=== PATIENT | male | born 1960 | race Caucasian/White ===

== ENCOUNTER 2019-04-16 16:33 | Emergency (ER) | payer MEDICARE ==
[2019-04-16] MEDS ORDERED: Ketorolac Tromethamine 30 MG/ML VIAL ONE (18:13)
--- NOTE | 2019-04-16 18:53 | RAD ---
AP PELVIS: HISTORY: Fall with injury. FINDINGS: The bony pelvis appears intact. The hips appear intact. IMPRESSION: No acute fracture identified. ADDENDUM: CT scan pelvis confirms fractures of the right superior and inferior rami and right ilium, which are not readily apparent on this plain film evaluation. See CT pelvis. POS: AGW
[2019-04-16] MEDS ORDERED: Morphine 4 MG/ML VIAL ONE (20:08)
--- NOTE | 2019-04-16 20:10 | CT ---
CT PELVIS: INDICATIONS: Fall with injury. FINDINGS: There are fractures of the right hemipelvis. There is a mildly comminuted fracture of the right super ior ramus at the ischium and extending into the mid superior ramus. Associated fracture of the right inferior ramus. Fractures of the right ilium, which are mildly comminuted and extend to the SI joint on the right. The sacrum appears intact. The femoral heads and femoral necks appear intact. No significant soft tissue abnormality. IMPRESSION: Multiple fractures right hemipelvis. There are fractures of the superior and inferior rami on the rig ht. Fractures of the right ilium, as described above. POS: AGW
--- NOTE | 2019-04-16 20:48 | CT ---
CT LUMBAR SPINE WITHOUT CONTRAST: HISTORY: Injury after falling from a standing position. The patient reports pain in the inner groin and into t he right buttock. FINDINGS: There are mild compression fractures involving the T12 and L1 vertebral bodies of indeterminate age. There is just less than 50% loss of height involving the anterior aspects of these vertebral bodies. No additional compression fracture is seen. There is a corticated osseous density with irregularity i nvolving the anterior-superior endplate of the L3 vertebral body. This may represent a limbus type ve rtebra. There is grade 1 anterolisthesis of L4 on L5 with the degree of anterolisthesis measuring 7 mm. Multi level degenerative changes are seen in the lumbar spine. T12-L1: There is a disk osteophyte complex with vacuum phenomenon seen in the intervertebral disk. Th ere is flattening of the anterior aspect of the ventral subarachnoid space. Neural foramina are paten t. L1-L2: There is disk osteophyte complex with slight flattening at the anterior aspect of the thecal s ac. The neural foramina are patent. L2-L3: There is a broad-based disk osteophyte complex and facet hypertrophic changes. There is moder ate bilateral neural foraminal narrowing. There is mild central canal narrowing. L3-L4: There is mild disk osteophyte complex and facet degenerative changes. There is no significant central canal or neural foraminal narrowing. L4-L5: There is grade 1 anterolisthesis at this level, as described above, with disk osteophyte compl ex as well as facet hypertrophic change and ligamentous thickening. There is severe narrowing of the central canal at the level of the superior aspect of the L5 vertebral body. There is also moderate to severe bilateral neural foraminal narrowing. L5-S1: There is a mild disk osteophyte complex and facet hypertrophic changes however there is no sig nificant central canal or neural foraminal narrowing. The prevertebral soft tissues have a normal appearance. There are dense vascular calcifications seen throughout. There is an incompletely imaged hypodense lesion in the mid portion right kidney, which is unable to be further characterized. There is colonic diverticulosis. IMPRESSION: 1. Indeterminate age wedge shaped compression fractures of the T12 and L1 vertebral bodies. 2. Multilevel degenerative changes throughout the lumbar spine. 3. Grade 1 anterolisthesis of L4 on L5 related to prominent facet hypertrophic changes. 4. Incompletely imaged hypodense lesion right kidney. POS: OFF
== END 2019-04-17 01:00 ==
LOC: ERS 16:33
DX: S32.501A Unspecified fracture of right pubis, initial encounter for closed fracture (principal); S32.301A Unspecified fracture of right ilium, initial encounter for closed fracture; S22.089A Unspecified fracture of T11-T12 vertebra, initial encounter for closed fracture; S22.019A Unspecified fracture of first thoracic vertebra, initial encounter for closed fracture; E10.9 Type 1 diabetes mellitus without complications; E03.9 Hypothyroidism, unspecified; Z79.899 Other long term (current) drug therapy; W18.30XA Fall on same level, unspecified, initial encounter
CPT/HCPCS: 72131; 72170; 72192; 96372; J1885; J2270

== ENCOUNTER 2019-05-22 15:36 | Outpatient (CLI) | payer MEDICARE ==
--- NOTE | 2019-05-22 15:58 | RAD ---
Lumbar spine 2 views HISTORY: Compression fracture. Follow-up. COMPARISON: 04/16/2019. FINDINGS: There are 5 lumbar type vertebrae. Pedicles are intact. Compression of the L1 superior endp late is worse than on the material carrier topogram from the 04/16/2019 CT exam. Compression of approximately 50%. Mild wedging of the T12 vertebral body appears stable. No evidence of retropulsion. Grade 1 spondylol isthesis at the L4-5 level is stable. Rightward convex rotatory scoliotic curvature is more pronounced than on the prior CT exam. Prominent calcification over the arterial structures. Osteophytosis throughout the vertebral bodies a nd facets. IMPRESSION: Interval worsening of L1 superior endplate compression fracture. Mild compression of T12 appears stable. Prominent degenerative changes. Atherosclerosis.
--- NOTE | 2019-05-22 15:58 | RAD ---
EXAM: XR Thoracic Spine 3 V STANDARD PROVIDED CLINICAL HISTORY: Lumbar compression fractures. COMPARISON: CT lumbar spine on 04/16/2019 FINDINGS: There are wedge-shaped compression fractures of the T12 and L1 vertebral bodies with the degree of he ight loss similar to prior CT exam of the lumbar spine. The remaining vertebral body heights of the thoracic spine appear to be within normal limits; although, the upper thoracic spine is not well seen on the lateral projection. Mild degenerative changes are seen in the spine. Vascular calcifications are seen in the thoracic aorta. IMPRESSION: Mild wedge-shaped compression fractures of the T12 and L1 vertebral bodies with mild exaggerated kyph osis of the thoracolumbar spine at this level. The compression fractures are stable compared to CT exam on 04/16/2019.
== END 2019-05-22 15:37 | disposition home or self-care (01) ==
LOC: TBSIIMAG 15:36
PROVIDERS: ATTEND Neurological Surgery
DX: S32.010A Wedge compression fracture of first lumbar vertebra, initial encounter for closed fracture (principal); S22.080A Wedge compression fracture of T11-T12 vertebra, initial encounter for closed fracture; M40.205 Unspecified kyphosis, thoracolumbar region
CPT/HCPCS: 72072; 72100

== ENCOUNTER 2019-07-05 13:06 | Outpatient (CLI) | payer MEDICARE ==
--- NOTE | 2019-07-05 14:03 | RAD ---
XR Lumbar Spine 2 Or 3 View: 07/05/2019 12:00 AM Follow-up lumbar fracture COMPARISON: Lumbar spinal radiograph dated May 22, 2019 FINDINGS: Fracture: The wedge compression abnormalities at T12 and L1 are unchanged. No acute fracture. Alignment: Stable grade 1 anterolisthesis of L4 on L5 Degenerative Change: Stable moderate to severe multilevel spondylosis of the lumbar spine. Soft tissues: There are scattered vascular calcifications involving the abdominal aorta. Visualized b owel gas pattern is unremarkable.. IMPRESSION: Stable T12-L1 wedge compression abnormalities. Stable spondylosis of the lumbar spine.
--- NOTE | 2019-07-05 14:04 | RAD ---
XR Thoracic Spine 3 V STANDARD: 07/05/2019 12:00 AM Follow-up back fracture COMPARISON: May 22, 2019 FINDINGS: Fracture: Wedge compression abnormalities at T12 and L1 are stable. Alignment: Spinal alignment appears within normal limits. Degenerative Change: Mild multilevel disc degenerative disease is stable. Prevertebral soft tissues: No acute. IMPRESSION: Stable wedge compression abnormalities at T12 and L1.
== END 2019-07-05 13:07 | disposition home or self-care (01) ==
LOC: TBSIIMAG 13:06
PROVIDERS: ATTEND Neurological Surgery
DX: M48.56XA Collapsed vertebra, not elsewhere classified, lumbar region, initial encounter for fracture (principal); M47.812 Spondylosis without myelopathy or radiculopathy, cervical region
CPT/HCPCS: 72072; 72100

== ENCOUNTER 2019-07-23 08:33 | Inpatient (IN) | payer MEDICARE ==
[2019-07-23] MEDS ORDERED: Morphine 4 MG/ML VIAL ONE ×4 (08:53→12:28)
[2019-07-23] MEDS ORDERED: Ondansetron PF 4 MG/2 ML Vial ONE ×2 (08:53→09:57)
--- NOTE | 2019-07-23 09:21 | RAD ---
EXAM: 2 views of the right femur HISTORY: Fall transitioning from bed to wheelchair with right leg pain COMPARISON: None FINDINGS: There is a spiral fracture proximal femoral diaphysis. No soft tissue swelling is seen. Vas cular calcifications are seen. No degenerative changes are seen in the hip. IMPRESSION: Proximal right femur fracture
--- NOTE | 2019-07-23 09:45 | RAD ---
EXAM: Single view of the chest HISTORY: Femur fracture COMPARISON: None FINDINGS: Single view of the chest shows a normal sized cardiomediastinal silhouette. There is no bairon dence of consolidation, mass, or pleural effusion. The bones are unremarkable. IMPRESSION: No evidence of acute cardiopulmonary disease
--- NOTE | 2019-07-23 09:45 | RAD ---
RIGHT KNEE 2 VIEWS: Date: 07/23/2019 INDICATION: History of right knee pain after fall. COMPARISON: None. FINDINGS: No acute fracture or subluxation is evident. There is soft tissue calcifications. There is mild soft tissue swelling involving the anterior right knee. IMPRESSION: No acute osseous abnormality. POS: CET
--- NOTE | 2019-07-23 09:47 | RAD ---
RIGHT HIP 2 VIEWS: Date: 07/23/2019 INDICATION: History of fall with right leg pain and deformity. COMPARISON: None. FINDINGS: There is a comminuted, displaced subtrochanteric femur fracture with associated butterfly fragment. T he distal fracture fragment is displaced posteriorly one fully shaft width. There is apex anterior an gulation at the fracture site. There are healing right obturator ring fractures. There is diffuse ost eopenia. There are scattered vascular calcifications. IMPRESSION: 1. Comminuted, displaced right subtrochanteric femur fracture. 2. Healing right obturator ring fractures. POS: CET
[2019-07-23] MEDS ORDERED: ePHEDrine/0.9% NaCl/PF SYRINGE 50 mg/10 ml ONE (09:57)
[2019-07-23] MEDS ORDERED: Glycopyrrolate 0.2 MG/ML 5 ML SYRINGE ONE (09:57)
[2019-07-23] MEDS ORDERED: Rocuronium Bromide 10 MG/ML (10ML VIAL) ONE (09:57)
[2019-07-23] MEDS ORDERED: Lidocaine 1% PF 5 ML VIAL ONE (09:57)
[2019-07-23] MEDS ORDERED: PROPOFOL 200 MG/20 ML VIAL ONE (09:57)
[2019-07-23] MEDS ORDERED: PHENYLEPHRINE-NS 100 MCG/ML 10 ML SYRINGE ONE (09:57)
[2019-07-23] MEDS ORDERED: Metoprolol Tartrate 5 MG/5 ML VIAL ONE (09:57)
[2019-07-23 10:01] LABS: #Lymphocytes 1.2 thou/uL (1.20-3.40); #Monocytes 0.6 thou/uL (0.11-0.59); #Neutrophils 9.1 thou/uL (1.40-6.50); %Basophils 0.2 % (0.0-1.0); %Eosinophils 0.4 % (0.0-10.0); %Lymphocytes 10.8 % (21.0-51.0); %Monocytes 5.3 % (0.0-10.0); %Neutrophils 83.3 % (42.0-75.0); Hemoglobin 14.9 g/dL (14.0-18.0); Mean Corpuscular HGB CONC 35.4 g/dL (32.0-36.0); Mean Corpuscular Hemoglobin 31.3 pg (27.0-31.0); Mean Corpuscular Volume 88.6 fL (78.0-98.0); Mean Platelet Volume 6.4 fL (7.4-10.4); Platelet Count 187 thou/uL (130-400); RBC Distribution Width 12.5 % (11.5-14.5); Red Blood Cell (RBC) Count 4.75 mill/uL (4.70-6.10)
[2019-07-23 10:11] LABS: Prothrombin Time 13.1 SEC (12.0-14.7)
[2019-07-23 10:26] LABS: ALT (SGPT) 18 U/L (8-55); AST (SGOT) 22 U/L (5-34); Albumin 4.2 g/dL (3.4-4.8); Alkaline Phosphatase 89 U/L (40-110); Anion Gap 15 mmol/L (10-20); BUN (Urea Nitrogen) 26 mg/dL (8.4-25.7); Bilirubin, Total 0.8 mg/dL (0.2-1.2); Calc. Creatinine Clearance 0 mL/min (70-130); Calcium 8.9 mg/dL (7.8-10.44); Carbon Dioxide 23 mmol/L (23-31); Chloride 106 mmol/L (98-107); Estimated GFR-MDRD 55; Globulin 2.8 g/dL (2.4-3.5); Glucose 100 mg/dL (80-115); Potassium 4.9 mmol/L (3.5-5.1); Sodium 139 mmol/L (136-145)
[2019-07-23] MEDS ORDERED: Dextrose 50% Abboject 50 ML SYRINGE SLOW IVP PRN (11:16)
[2019-07-23] MEDS ORDERED: Ondansetron ODT 4 MG TAB PO PRN (11:16)
[2019-07-23] MEDS ORDERED: hydrALAZINE 20 MG/ML VIAL SLOW IVP PRN (11:16)
[2019-07-23] MEDS ORDERED: Dextrose 5% in Water 1,000 ML IV PRN (11:16)
[2019-07-23] MEDS ORDERED: traMADol HCl 50 MG TAB PO PRN ×2 (11:20)
[2019-07-23] MEDS ORDERED: HYDROmorphone 0.5 MG/0.5 ML SYRINGE ONE ×3 (11:55→18:52)
--- NOTE | 2019-07-23 12:47 | PRG ---
DATE OF SERVICE: 07/23/2019 REQUESTING PHYSICIAN: Gama Watkins MD. CONSULTING PHYSICIAN: Dr. Orellana. HISTORY OF PRESENT ILLNESS: Mr. Garvin is a 59-year-old male, coming to the ED for evaluation of right thigh pain. The patient reports he was standing up, trying to go to his wheelchair, tripped and fell backward. He heard a crack at that time, did not loss consciousness or hit his head. After the fall, the patient reports pain of the right thigh and unable to bear weight. Upon arrival in the ED, the patient is alert, awake, pain from the right thigh, with vital signs stable. REVIEW OF SYSTEMS: Noncontributory except per HPI. PAST MEDICAL HISTORY: 1. The patient has diabetes type 1, using Lantus and Lovenox. 2. Hypothyroid. 3. The patient had a spine compression fracture and pelvic fracture in March 2019 and he did go to rehab for those injuries. PAST SURGICAL HISTORY: 1. 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 2. IVC filter. SOCIAL HISTORY: Denies smoking history. Denies alcohol. The patient occasionally uses marijuana for pain. The patient lives at home with family. Ambulates using left lower extremity prosthetic and wheelchair occasionally. PHYSICAL EXAMINATION: GENERAL: The patient is lying down in bed with no acute respiratory distress. The patient is alert and awake. GCS 15. VITAL SIGNS: Temperature is 97.4, respiratory rate 20, heart rate 87, blood pressure 150/100, O2 saturation 98% on room air. HEENT: Atraumatic. No bruising. No tender to palpation. CHEST: No bruising. No tender to palpation. LUNGS: Clear bilaterally. HEART: Regular rate and rhythm. ABDOMEN: Soft. Nondistended. PELVIS: Stable. EXTREMITIES: Left lower extremity amputation. Right lower extremity deformity. Right thigh deformity. Tender to palpation. External rotation. Dry feet. Neurovascularly intact. Upper extremities neurovascularly intact x2. NEUROLOGIC: No focal neurologic deficits. LABORATORY DATA AND IMAGING STUDIES: Initial workup showed sodium 139, potassium 4.9, creatinine 1.32, glucose 100, PT 13.1. Right hip x-rays showed comminuted displaced right subtrochanteric femur fracture and healing right obturator ring fracture. Right knee x-rays showed . White count 11 and hemoglobin 14.9. Chest x-ray showed no acute cardiopulmonary disease. ASSESSMENT: 1. Status post ground level fall. 2. Right femur fracture. 3. History of diabetes type 1, hypertension, hypothyroid, recent C-spine compression fracture and pelvic fracture (healing), left lower extremity amputation. PLAN: The patient will be admitted to telemetry for pain control and supportive care in regard to diabetes and blood pressure and hypertension treatment. Initiate nonpharmacological DVT prophylaxis, gastritis prophylaxis, and pulmonary toilet. Dr. Orellana plans to take the patient to the OR this afternoon for right femur fracture fixation. The patient will be n.p.o. with may be a sip of water. Postop, the patient will need to work with PT/OT, anticipate placement in rehabilitation facility. Job ID: [id number]
[2019-07-23] MEDS: Morphine 4 MG/ML VIAL SLOW IVP PRN ×2 (12:48→21:29)
[2019-07-23] MEDS ORDERED: Fentanyl 100 MCG/2 ML VIAL ONE ×5 (13:29→18:18)
[2019-07-23] MEDS ORDERED: HYDROmorphone 2 MG/ML VIAL SLOW IVP PRN (14:45)
[2019-07-23] MEDS ORDERED: Meperidine HCl/PF 25 MG/ML VIAL SLOW IVP PRN (14:45)
[2019-07-23] MEDS ORDERED: Promethazine HCl 25 MG/ML VIAL SLOW IVP PRN (14:45)
[2019-07-23] MEDS ORDERED: Ondansetron HCl/PF 4 MG/2 ML Vial IVP PRN (14:45)
[2019-07-23 15:14] VITALS: BMI 23.6
[2019-07-23] MEDS: Acetaminophen 500 MG TAB PO SCH ×2 (15:16→19:11)
[2019-07-23] MEDS: Sodium Chloride 0.9% 1,000 ML IV SCH ×2 (15:16→20:21)
[2019-07-23] MEDS: Gabapentin 300 MG CAP PO SCH (16:36)
--- NOTE | 2019-07-23 19:17 | RAD ---
RIGHT FEMUR TWO VIEWS: History: Post op. FINDINGS: There has been placement of a compression screw and long stem intermedullary tristan stabilizing a spiral type fracture of the proximal femoral shaft in satisfactory position. IMPRESSION: Open reduction internal fixation of the proximal femoral shaft fracture. POS: LARRY
[2019-07-23] MEDS: Insulin Regular 300 UNITS/3 ML VIAL SC PRN (21:26)
[2019-07-23] MEDS ORDERED: Promethazine HCl 25 MG/ML VIAL IM PRN (21:38)
[2019-07-24] MEDS: Famotidine 20 MG TAB PO SCH ×2 (00:07→08:20)
[2019-07-24] MEDS: Acetaminophen 500 MG TAB PO SCH ×3 (00:07→11:19)
[2019-07-24] MEDS: Cyclobenzaprine 10 MG TAB PO SCH ×3 (00:08→21:42)
[2019-07-24] MEDS: Gabapentin 300 MG CAP PO SCH ×2 (00:08→08:20)
--- NOTE | 2019-07-24 00:36 | PRG ---
DATE OF SERVICE: SUBJECTIVE: The patient is currently on the surgical floor. He was admitted today status post a ground level fall, in which he sustained a right femur fracture. The patient has undergone open reduction and internal fixation of same. He tolerated the procedure well. Postoperatively, he reports his pain is controlled. He is currently tolerating a diet. He has not worked with Physical and Occupational Therapy. PHYSICAL EXAMINATION: VITAL SIGNS: Stable. The patient is afebrile. GENERAL: The patient is resting comfortably in bed. His Hal Coma Scale is 15. LUNGS: Clear to auscultation with good inspiratory and expiratory effort. HEART: Regular rate and rhythm. ABDOMEN: Soft, flat, nontender with active bowel sounds. EXTREMITIES: Neurovascularly intact x4. Postop dressing is clean, dry, and intact. ASSESSMENT: 1. Status post ground level fall. 2. Status post open reduction and internal fixation of right femur fracture. 3. History of diabetes, hypertension, hypothyroidism, recent C-spine compression fracture and pelvic ring fracture. 4. History of left [id number] amputation. PLAN: Plan will be to continue supportive care, physical and occupational therapy to begin tomorrow. Encourage out of bed diet and begin chemical VTE prophylaxis likely tomorrow. We will also discuss placement at that time. Job ID: [id number]
[2019-07-24] MEDS: Sodium Chloride 0.9% 1,000 ML IV SCH ×4 (05:27→23:18)
[2019-07-24] MEDS: Levothyroxine Sodium 125 MCG TAB PO SCH (05:30)
[2019-07-24] MEDS: Insulin Regular 300 UNITS/3 ML VIAL SC PRN ×2 (05:34→11:20)
[2019-07-24 05:47] LABS: #Lymphocytes 1.4 thou/uL (1.20-3.40); #Monocytes 0.9 thou/uL (0.11-0.59); #Neutrophils 7.4 thou/uL (1.40-6.50); %Basophils 0.1 % (0.0-1.0); %Eosinophils 0.2 % (0.0-10.0); %Lymphocytes 14.5 % (21.0-51.0); %Monocytes 9.4 % (0.0-10.0); %Neutrophils 75.8 % (42.0-75.0); Mean Corpuscular HGB CONC 33.6 g/dL (32.0-36.0); Mean Corpuscular Hemoglobin 30.5 pg (27.0-31.0); Mean Platelet Volume 7.5 fL (7.4-10.4); Platelet Count 136 thou/uL (130-400); RBC Distribution Width 12.7 % (11.5-14.5); Red Blood Cell (RBC) Count 3.59 mill/uL (4.70-6.10); White Blood Cell (WBC) Count 9.8 thou/uL (4.8-10.8)
[2019-07-24 06:01] LABS: Anion Gap 17 mmol/L (10-20); BUN (Urea Nitrogen) 33 mg/dL (8.4-25.7); Calc. Creatinine Clearance 50 mL/min (70-130); Calcium 7.7 mg/dL (7.8-10.44); Carbon Dioxide 15 mmol/L (23-31); Chloride 104 mmol/L (98-107); Estimated GFR-MDRD 44; Glucose 270 mg/dL (80-115); Magnesium 1.7 mg/dL (1.6-2.6); Potassium 5.3 mmol/L (3.5-5.1); Sodium 131 mmol/L (136-145)
[2019-07-24] MEDS ORDERED: Sodium Chloride 0.9% 500 ML IV SCH (06:15)
--- NOTE | 2019-07-24 07:35 | RAD ---
RIGHT FEMUR TWO VIEWS: History: Intraoperative film. FINDINGS: This shows an intramedullary tristan stabilizing a proximal femoral shaft fracture in good position. IMPRESSION: Open reduction internal fixation of a proximal femoral fracture with intramedullary tristan. POS: LARRY
[2019-07-24] MEDS ORDERED: Lisinopril 5 MG TAB PO SCH (09:00)
[2019-07-24] MEDS ORDERED: Gabapentin 100 MG CAP PO SCH (09:00)
[2019-07-24] MEDS ORDERED: Latanoprost 0.005% Ophth Soln 2.5 ml Bottle EA EYE SCH ×2 (09:00→21:00)
[2019-07-24] MEDS: Insulin Glargine 10 UNITS in Pre-Filled Syringe 1 EACH SC SCH ×2 (09:38→21:43)
[2019-07-24] MEDS ORDERED: Morphine 4 MG/ML VIAL ONE (10:35)
[2019-07-24] MEDS ORDERED: Morphine 4 MG/ML VIAL SLOW IVP SCH (10:45)
[2019-07-24] MEDS ORDERED: Brimonidine Tartrate 0.2% Ophth Soln 5 ml Bottle EA EYE SCH ×2 (11:45→21:00)
[2019-07-24] MEDS: HYDROcodone/Acetaminophen 10/325 mg Tablet PO PRN ×3 (13:44→23:14)
--- NOTE | 2019-07-24 13:52 | OP ---
DATE OF PROCEDURE: 07/23/2019 PREOPERATIVE DIAGNOSIS: Right subtrochanteric femur fracture. POSTOPERATIVE DIAGNOSIS: Right subtrochanteric femur fracture. PROCEDURE PERFORMED: Intramedullary nail stabilization of right subtrochanteric femur fracture. ANESTHESIA: General. INTERNET ARCHITECT: Bennett Swan PA-C. ESTIMATED BLOOD LOSS: 300 mL. IMPLANT: Synthes TFN set was used with an 11 x 380 mm nail with a 90 mm hip screw with the addition of two 1.7 mm cables and cramps. COMPLICATIONS: None. DRAINS: None. SPECIMEN: None. OUTCOME: Near-anatomic alignment. INDICATIONS: Mr. Garvin is a 59-year-old gentleman who was transferring to his wheelchair when he fell and sustained a right comminuted subtrochanteric femur fracture. After discussion with the patient including risks and benefits, we decided to proceed to the operating room for nail stabilization of this fracture. Risks and benefits have been discussed with the patient. Risks include, but are not limited to bleeding, infection, nerve injury, DVT, PE, malunion, nonunion, loss of limb or life. The patient appears to understand and does wish to proceed. Informed consent has been obtained. DESCRIPTION OF PROCEDURE: The patient was brought to the operating room and a time-out performed followed by induction general anesthesia. Next, patient was positioned supine on the fracture table with the injured extremity held in longitudinal traction. Next, a sterile prep and drape was performed of the right lateral thigh. An attempt of closed reduction was performed. However, this proved to be quite difficult given the butterfly fragment and the comminuted nature at the fracture. As such, a lateral skin incision was made at the level of fracture. After skin was sharply incised, dissection was carried down through the subcutaneous fat to the fascia leatha. This was incised in line with the skin incision revealing the underlying fascia of the vastus lateralis. This was incised in line with skin incision and the muscle belly was reflected anteriorly gaining access to the fracture. Next, using a combination of bone clamps and K wires, the fracture was able to be reduced to an acceptable level and held in place. This was then followed by exchange to a cable system for securing the butterfly fragment to both the proximal and distal segments. Once done, nailing was then performed. A second incision was made proximal to the first. Blunt dissection carried down such that the tip of the greater trochanter could be palpated. Next, a guidewire was passed from the tip of the trochanter down into the proximal femoral intramedullary canal. Next, a reamer was passed over this guidewire and then a ball-tipped guidewire was passed down the fracture. Once passed, reaming was started at size 10 and continued up to size 12. Next, an 11 x 380 mm nail was passed over this ball-tipped guidewire. Once delivered to an appropriate depth, a jig was introduced and the threaded guidewire passed up the femoral neck into the femoral head approaching the [id number] position. Measurement was taken off this guide pin for step reamer and then the hip screw was introduced without difficulty. The hip screw was then locked in place so that it was not a sliding hip screw given the subtrochanteric position of the fracture. Next, two distal cross-lock screws were placed in a freehand technique. At the completion of this, AP and lateral C-arm images were obtained that showed near-anatomic alignment of the fracture with acceptable hardware positioning. The wounds were then irrigated with bulb syringe and closed in layers with 0 Vicryl deep followed by 2-0 Vicryl and then bijan for the skin. Xeroform gauze and tape dressing were applied to the lateral thigh and then patient was transferred to recovery room in stable condition. There were no complications. He tolerated the procedure well. Job ID: [id number]
[2019-07-24] MEDS: Gabapentin 100 MG CAP PO SCH ×2 (14:53→21:42)
[2019-07-24] MEDS: traMADol HCl 50 MG TAB PO SCH ×2 (14:53→21:43)
[2019-07-24] MEDS ORDERED: Tamsulosin HCl 0.4 MG CAP PO SCH (15:00)
--- NOTE | 2019-07-24 15:30 | PRG ---
DATE OF SERVICE: 07/24/2019 SUBJECTIVE: Mr. Garvin is a 59-year-old male, hospital day #2, status post ORIF of the right femur after a fall from his wheelchair. The patient is in extreme pain. He is walking up with PT at this time. The surgery went well. However, per Orthopedics, there was a large incision and a pretty profound surgery, expect increased pains. He is hemodynamically stable other than some mild tachycardia. The patient has Mac catheter removed and had to have an I and O cath overnight. His glucose is high riding, we are adding Lantus now. He has been given a fluid bolus this morning at 500 mL. He has no nausea, vomiting. He has tolerated diet. OBJECTIVE: VITAL SIGNS: Today temperature is 98.4, blood pressure is 143/83, heart rate is 120, respiratory rate is 18, saturating 99% on room air. GENERAL: This is a 59-year-old male, sitting on the edge of the bed, in slight distress secondary to pain. He is working with PT. HEENT: Normocephalic, atraumatic. Trachea is midline. RESPIRATORY: No respiratory distress. CARDIOVASCULAR: Tachycardic, regular rhythm. ABDOMEN: Soft, nontender. PELVIS: Stable. MUSCULOSKELETAL: He has a surgery incision to the right lower extremity, has a BKA of the left. NEURO: Alert and oriented. PSYCH: Normal mood and affect. Very mild depression appreciated likely secondary to event. LABORATORY DATA: From today; white blood cell count 9.8, platelets are 136, hemoglobin and hematocrit are 11.0 and 32.7 respectively. Chemistry; sodium is 131, potassium is 5.3, chloride is 104, CO2 is 15, creatinine is 1.60, BUN is 33, glucose is 270, calcium 7.7, phos is 4.0, and magnesium of 1.7. ASSESSMENT: 1. Status post ground level fall resulting in a right proximal femur fracture, status post ORIF. 2. History of diabetes; hypertension; hypothyroidism; C-spine fracture and pelvic ring fracture, recently improving from. 3. History of left above-knee amputation. PLAN: 1. 4 mg of morphine now. 2. Increase pain regimen. 3. Discuss with Orthopedics, expect to have pain, may need rehab. 4. Rehab consult. 5. Appears to be volume depleted. Encouraged oral fluids . 6. 500 mL of normal saline now. 7. Suspend any nephrotoxic agents. His creatinine is improving, is still 1.6 today. 8. Repeat labs in the morning. 9. Increased to medium dose sliding scale. 10. Add Lantus 10 units b.i.d. 11. Continue point of care glucose. 12. Continue all other supportive care. 13. Updated the patient, answered all questions at bedside, coordinated with the bedside RN. This patient was seen by Dr. Doug Mari. Plan can be updated as needed. Job ID: [id number]
[2019-07-24] MEDS: Acetaminophen 325 MG TAB PO SCH ×2 (17:43→23:14)
[2019-07-24] MEDS: Brimonidine Tartrate 0.2% Ophth Soln 5 ml Bottle EA EYE SCH (21:42)
[2019-07-25 01:47] LABS: #Lymphocytes 1.1 thou/uL (1.20-3.40); #Monocytes 0.6 thou/uL (0.11-0.59); #Neutrophils 4.5 thou/uL (1.40-6.50); %Basophils 0.3 % (0.0-1.0); %Eosinophils 0.6 % (0.0-10.0); %Lymphocytes 17.6 % (21.0-51.0); %Monocytes 9.8 % (0.0-10.0); %Neutrophils 71.8 % (42.0-75.0); Hemoglobin 7.7 g/dL (14.0-18.0); Mean Corpuscular Hemoglobin 31.6 pg (27.0-31.0); Mean Corpuscular Volume 87.8 fL (78.0-98.0); Mean Platelet Volume 6.6 fL (7.4-10.4); Platelet Count 99 thou/uL (130-400); Platelet Morphology Comment Appears Decreased; RBC Distribution Width 12.4 % (11.5-14.5); Red Blood Cell (RBC) Count 2.45 mill/uL (4.70-6.10); White Blood Cell (WBC) Count 6.2 thou/uL (4.8-10.8)
--- NOTE | 2019-07-25 01:51 | PRG ---
DATE OF SERVICE: 07/24/2019 SUBJECTIVE: The patient was seen this evening during rounds. He was resting comfortably and asleep, but no signs of acute distress. Nursing reported no acute events. The patient persistently tachycardic today with heart rate in the one-teens. This is slightly improved from this morning. Blood pressure also continues to remain on the low side this evening. Nursing did report they did place a Mac catheter today as he was having retention and when it was placed, they did get 1.8 L of urine at that time. OBJECTIVE: VITAL SIGNS: Temperature 98.7, pulse 116, respirations 18, oxygen saturation 98% on room air, blood pressure 104/63. GENERAL: Well-appearing middle-aged male, lying in bed with no signs of acute distress. PULMONARY: Equal chest rise and fall. No signs of acute respiratory distress. ASSESSMENT: 1. Status post fall from wheelchair. 2. Right hip fracture, status post repair. 3. History of type 1 diabetes. 4. Hypothyroidism. 5. Pelvic fracture in March. 6. Above the knee amputation to the left side. 7. Urinary retention, status post Mac. 8. Acute kidney injury, worsening. 9. Tachycardia. PLAN: 1. Continue current diet and pain regimen. Continue normal saline at 120 an hour. Continue Mac. 2. We will complete the patient's morning labs earlier. 3. We will complete a CBC, BMP, cortisol, lactic acid, magnesium and phosphorus. 4. The patient has had a significant increase in his urinary output. However, with his retention, this may not be accurate for the amount of urine he is making currently. The patient may need additional fluid or hydrocortisone. Depending on the results of the lab work, we will make further changes once patient's labs have returned. We have also discontinued the patient's home BALJEET inhibitor as his blood pressures are now with systolic below the one-teens. We will continue to closely monitor the patient's hemodynamics and urinary output until we have further information with the lab studies. Job ID: [id number]
[2019-07-25 02:13] LABS: Anion Gap 9 mmol/L (10-20); BUN (Urea Nitrogen) 24 mg/dL (8.4-25.7); Calc. Creatinine Clearance 60 mL/min (70-130); Calcium 7.6 mg/dL (7.8-10.44); Carbon Dioxide 23 mmol/L (23-31); Chloride 105 mmol/L (98-107); Estimated GFR-MDRD 55; Glucose 248 mg/dL (80-115); Magnesium 1.7 mg/dL (1.6-2.6); Phosphorus 2.2 mg/dL (2.3-4.7); Potassium 4.4 mmol/L (3.5-5.1); Sodium 133 mmol/L (136-145)
[2019-07-25] MEDS ORDERED: Sodium Phosphate 30 MMOL in Sodium Chloride 0.9% 250 ML 250 ML IVPB SCH ×2 (03:30→23:00)
[2019-07-25] MEDS: traMADol HCl 50 MG TAB PO SCH ×4 (03:51→20:33)
[2019-07-25] MEDS ORDERED: Hydrocortisone Sod Succ/PF 100 mg/2 ml Vial IVP SCH (05:00)
[2019-07-25] MEDS: Levothyroxine Sodium 125 MCG TAB PO SCH (05:16)
[2019-07-25] MEDS: Acetaminophen 325 MG TAB PO SCH ×4 (05:16→23:32)
[2019-07-25] MEDS: Insulin Regular 300 UNITS/3 ML VIAL SC PRN ×4 (05:20→22:08)
[2019-07-25] MEDS: Sodium Chloride 0.9% 1,000 ML IV SCH ×3 (06:51→20:36)
[2019-07-25] MEDS ORDERED: Magnesium Oxide 400 MG TAB PO SCH (07:00)
[2019-07-25] MEDS: Tamsulosin HCl 0.4 MG CAP PO SCH (08:18)
[2019-07-25] MEDS: Cyclobenzaprine 10 MG TAB PO SCH ×2 (08:19→20:33)
[2019-07-25] MEDS: Gabapentin 100 MG CAP PO SCH (08:21)
[2019-07-25] MEDS: Insulin Glargine 10 UNITS in Pre-Filled Syringe 1 EACH SC SCH ×2 (08:22→20:32)
[2019-07-25] MEDS: Brimonidine Tartrate 0.2% Ophth Soln 5 ml Bottle EA EYE SCH ×2 (08:36→20:33)
[2019-07-25] MEDS: Polyethylene Glycol 3350 17 GM Packet PO SCH (11:24)
[2019-07-25] MEDS: Senokot S 8.6-50 MG TAB PO SCH ×2 (11:24→20:33)
[2019-07-25] MEDS: Hydrocortisone Sod Succ/PF 100 mg/2 ml Vial IVP SCH ×3 (11:31→23:32)
--- NOTE | 2019-07-25 12:35 | PRG ---
DATE OF SERVICE: 07/25/2019 SUBJECTIVE: The patient is feeling much better today. Yesterday, he said his pain was a "68 out of 10." Today, his pain has much improved. He was resting comfortably and was awaiting physical therapy treatment. The patient had some urinary retention overnight, and had an output of 1.8 L of urine after placement of Mac. The patient denies history of benign prostatic hyperplasia and is not on any medication such as Flomax at home. OBJECTIVE: VITAL SIGNS: Heart rate tachycardic 110, blood pressure 112/69, otherwise normal vital signs. CONSTITUTIONAL: Well appearing. RESPIRATORY: No acute respiratory distress. CARDIAC: Regular rate and rhythm. ABDOMEN: Nondistended, and nontender. Soft. EXTREMITIES: Neurovascularly intact x4. Above knee amputation noted on the patient's left leg. ASSESSMENT: 1. Status post fall from wheelchair. 2. Right hip fracture status postoperative day #2 open reduction and internal fixation. 3. History of type 1 diabetes. 4. Hypothyroidism. 5. Pelvic fracture in March. 6. Above-knee amputation to the left side. 7. Urinary retention status post Mac. 8. Acute kidney injury, improving. 9. Tachycardia. PLAN: We will continue the current diet and pain regimen. We will continue the patient's normal saline at 120 mL/hour. Mac catheter will remain in place at this time. Tamsulosin has been added to aid with the urinary retention issues. We are holding the patient's BALJEET inhibitor since the blood pressure has been low. The patient was started on hydrocortisone after cortisol level was drawn. We will replace his electrolytes. The patient was assessed by Physical Therapy yesterday, and they recommended acute inpatient rehab. He does have a prosthesis for his AKA so that he may complete therapy of his injured leg. Job ID: [id number] [id number]
[2019-07-25] MEDS: Gabapentin 300 MG CAP PO SCH ×2 (15:02→20:33)
[2019-07-25] MEDS: Latanoprost 0.005% Ophth Soln 2.5 ml Bottle EA EYE SCH (20:34)
[2019-07-25 21:51] LABS: #Basophils 0.1 thou/uL (0.0-0.2); #Lymphocytes 0.7 thou/uL (1.20-3.40); #Monocytes 0.5 thou/uL (0.11-0.59); #Neutrophils 5.1 thou/uL (1.40-6.50); %Basophils 1.1 % (0.0-1.0); %Eosinophils 0.1 % (0.0-10.0); %Lymphocytes 10.9 % (21.0-51.0); %Monocytes 7.3 % (0.0-10.0); %Neutrophils 80.7 % (42.0-75.0); Hemoglobin 6.9 g/dL (14.0-18.0); Mean Corpuscular HGB CONC 34.3 g/dL (32.0-36.0); Mean Corpuscular Hemoglobin 30.7 pg (27.0-31.0); Mean Corpuscular Volume 89.5 fL (78.0-98.0); Mean Platelet Volume 6.9 fL (7.4-10.4); Platelet Count 106 thou/uL (130-400); RBC Distribution Width 12.3 % (11.5-14.5); Red Blood Cell (RBC) Count 2.25 mill/uL (4.70-6.10); White Blood Cell (WBC) Count 6.3 thou/uL (4.8-10.8)
[2019-07-25 22:05] LABS: Anion Gap 7 mmol/L (10-20); BUN (Urea Nitrogen) 15 mg/dL (8.4-25.7); Calc. Creatinine Clearance 68 mL/min (70-130); Calcium 7.7 mg/dL (7.8-10.44); Carbon Dioxide 26 mmol/L (23-31); Chloride 105 mmol/L (98-107); Estimated GFR-MDRD 63; Glucose 262 mg/dL (80-115); Phosphorus 2.1 mg/dL (2.3-4.7); Potassium 4.2 mmol/L (3.5-5.1); Sodium 134 mmol/L (136-145)
--- NOTE | 2019-07-25 23:42 | PRG ---
DATE OF SERVICE: 07/25/2019 SUBJECTIVE: The patient was seen this evening, lying in bed, no signs of acute distress. He continues to be tachycardic this evening; however, his blood pressure has also decreased. Repeat blood work has been sent, which demonstrates the patient has an acute blood loss anemia and is requiring blood transfusion. Otherwise, the patient reports that he is tolerating a diet and is working with Physical and Occupational Therapy. He has no acute concerns at this time. I have discussed with him blood transfusion. He reports that he does not like the idea of having other people's blood products in his body, but he will think about blood transfusion. In the meantime, we have ordered blood. OBJECTIVE: VITAL SIGNS: Temperature 98.7, pulse 109, respirations 18, oxygen saturation 97% on room air, and blood pressure 102/52. GENERAL: Middle-aged male, sitting up in bed with no signs of acute distress. PULMONARY: Equal chest rise and fall. No signs of acute respiratory distress. ASSESSMENT: 1. Status post fall from wheelchair. 2. Right hip fracture, status post repair. 3. Acute kidney injury, resolved. 4. Urinary retention, status post Mac catheter. 5. Acute adrenal insufficiency, stable. 6. Acute blood loss anemia. 7. History of left [id number] amputation, type 1 diabetes, pelvic fracture in March, hypothyroidism, and IVC filter placement. PLAN: Continue current diet and pain regimen. Continue Physical and Occupational therapy. Discontinue IV fluids. We will add iron and vitamin C to the patient' s regimen. He is to receive 1 unit of packed red blood cells today for hemoglobin of 6.9 with associated tachycardia and hypotension. The patient's heart rate is in the 100s to 110s and most recent blood pressure is 102/52. Patient not sure if he will consent to blood transfusion. Reports he doesn't like the idea of other peoples blood in him. We did discuss the risks and benefits of receiving and not receiving blood products and that we would work with him to respect his wishes. Nursing to also review consent and keep the door open for him to change his mind. Nursing to call trauma if patients tachycardia or hypotension worsens. Continue hydrocortisone. We will continue to hold off on DVT prophylaxis at this time, but we will reconsider. Repeat blood work in the morning as well. This patient is pending placement at acute rehab facility. Job ID: [id number] [facility] HOSPITALGriselda
[2019-07-26] MEDS: traMADol HCl 50 MG TAB PO SCH ×4 (02:53→19:47)
[2019-07-26] MEDS: Acetaminophen 325 MG TAB PO SCH ×4 (05:17→23:31)
[2019-07-26] MEDS: Hydrocortisone Sod Succ/PF 100 mg/2 ml Vial IVP SCH ×4 (05:17→23:31)
[2019-07-26] MEDS: Levothyroxine Sodium 125 MCG TAB PO SCH (05:17)
[2019-07-26] MEDS: Insulin Regular 300 UNITS/3 ML VIAL SC PRN ×3 (05:18→17:38)
[2019-07-26 05:34] LABS: #Lymphocytes 0.9 thou/uL (1.20-3.40); #Monocytes 0.4 thou/uL (0.11-0.59); #Neutrophils 4.7 thou/uL (1.40-6.50); %Basophils 0.1 % (0.0-1.0); %Eosinophils 0.2 % (0.0-10.0); %Lymphocytes 14.5 % (21.0-51.0); %Neutrophils 78.3 % (42.0-75.0); Hemoglobin 6.9 g/dL (14.0-18.0); Mean Corpuscular HGB CONC 35.4 g/dL (32.0-36.0); Mean Corpuscular Hemoglobin 31.9 pg (27.0-31.0); Platelet Count 103 thou/uL (130-400); RBC Distribution Width 12.3 % (11.5-14.5); Red Blood Cell (RBC) Count 2.18 mill/uL (4.70-6.10)
[2019-07-26 05:59] LABS: Anion Gap 10 mmol/L (10-20); BUN (Urea Nitrogen) 14 mg/dL (8.4-25.7); Calc. Creatinine Clearance 78 mL/min (70-130); Calcium 7.7 mg/dL (7.8-10.44); Carbon Dioxide 25 mmol/L (23-31); Chloride 106 mmol/L (98-107); Estimated GFR-MDRD 74; Glucose 193 mg/dL (80-115); Phosphorus 3.2 mg/dL (2.3-4.7); Potassium 3.9 mmol/L (3.5-5.1); Sodium 137 mmol/L (136-145)
[2019-07-26] MEDS ORDERED: Potassium Phosphate 15 MMOL in Sodium Chloride 0.9% 250 ML 250 ML IVPB SCH (06:45)
[2019-07-26] MEDS: Ascorbic Acid 500 mg Chewable Tablet PO SCH ×2 (08:16→19:50)
[2019-07-26] MEDS: Cyclobenzaprine 10 MG TAB PO SCH ×2 (08:16→19:50)
[2019-07-26] MEDS: Gabapentin 300 MG CAP PO SCH ×3 (08:16→19:50)
[2019-07-26] MEDS: Ferrous Sulfate 325 MG TAB PO SCH ×2 (08:16→16:26)
[2019-07-26] MEDS: Tamsulosin HCl 0.4 MG CAP PO SCH (08:17)
[2019-07-26] MEDS: Senokot S 8.6-50 MG TAB PO SCH ×2 (08:17→19:50)
[2019-07-26] MEDS: Polyethylene Glycol 3350 17 GM Packet PO SCH (08:18)
[2019-07-26] MEDS: Dorzolamide HCl 2% Ophth Soln 10 ml Bottle EA EYE SCH ×2 (08:19→19:51)
[2019-07-26] MEDS: Brimonidine Tartrate 0.2% Ophth Soln 5 ml Bottle EA EYE SCH ×2 (08:22→19:50)
[2019-07-26] MEDS: Insulin Glargine 10 UNITS in Pre-Filled Syringe 1 EACH SC SCH ×2 (09:54→19:49)
--- NOTE | 2019-07-26 14:23 | PRG ---
DATE OF SERVICE: 07/26/2019 SUBJECTIVE: The patient's pain is well controlled, although he complains of "tightness" in his right thigh. He tells me he has a prosthesis for his left leg, but he relies mostly on his right leg for walking. He continues to have a Mac in for his urinary retention noted 2 days ago. He has had a tachycardic heart rate greater than 105 and his blood pressure was at a low of 95/65 this morning. Overnight, his hemoglobin dropped to 6.9. Transfusion was discussed with him and he just was not sure about it. He was thinking about it this morning, but agreed to have a transfusion of 1 unit packed red blood cells after talking with the Orthopedic PA. OBJECTIVE: VITAL SIGNS: Tachycardia, greater than 105; blood pressures have been soft with a low this morning of 95/65. CONSTITUTIONAL: The patient is well-appearing. RESPIRATORY: No acute respiratory distress. CARDIAC: Regular rate and rhythm. No murmurs. ABDOMEN: Nondistended, nontender, and soft. EXTREMITIES: Neurovascularly intact x4, although pulses are a bit weak on his right foot. Above-knee amputation on the left leg. ASSESSMENT: 1. Status post fall from wheelchair. 2. Right hip fracture, status postop day #3 of open reduction and internal fixation. 3. History of type 1 diabetes. 4. Hypothyroidism. 5. Pelvic fracture in March 2019. 6. Above-knee amputation on his left leg. 7. Urinary retention with a Mac in place. 8. Acute kidney injury, improving. 9. Tachycardia. PLAN: Continue current diet and pain regimen. Mac catheter to remain in place. Continue tamsulosin. Continue to hold BALJEET inhibitor while blood pressure is low. The patient will be receiving 1 unit of packed red blood cells today. We will monitor him during the transfusion to assess for any adverse reaction. Continue physical therapy and occupational therapy. The patient is awaiting placement in inpatient rehab. Job ID: [id number]
[2019-07-26] MEDS: Latanoprost 0.005% Ophth Soln 2.5 ml Bottle EA EYE SCH (19:51)
[2019-07-26] MEDS ORDERED: Acetaminophen/Codeine 30-300mg Tablet PO PRN (21:37)
--- NOTE | 2019-07-27 00:01 | PRG ---
DATE OF SERVICE: 07/26/2019 SUBJECTIVE: Patient was seen this evening, sitting up in bed with no sings of acute distress. He reported that he started to have some visual hallucination starting yesterday evening. This is likely attributed to the tramadol. I discussed with him changing his pain regimen and he is in agreement. He will let us know if the hallucinations continue tomorrow as well. He did receive 1 unit of packed red blood cells today. Nursing reports no acute events. OBJECTIVE: VITAL SIGNS: Temperature 98.9, pulse 111, respirations 18, oxygen saturation 98% on room air, blood pressure 122/73. GENERAL: Well-appearing, middle-aged male, sitting up in bed with no signs of acute distress. PULMONARY: Equal chest rise and fall. No signs of acute respiratory distress. ASSESSMENT: 1. Status post fall from wheelchair. 2. Right hip fracture, status post repair. 3. Acute kidney injury, resolved. 4. Urinary retention, resolved. 5. Acute adrenal insufficiency, stable. 6. Acute blood loss anemia, stable. 7. History of left [id number] amputation, type 1 diabetes, pelvic fracture in March, hypothyroidism, and IVC filter placement. PLAN: We will discontinue tramadol due to hallucinations and start the patient on Tylenol 3 p.r.n. We will continue his other adjunctive pain medications as well. He will continue to work with Physical and Occupational Therapy. Job ID: [id number] [facility]
[2019-07-27 05:18] LABS: Anion Gap 14 mmol/L (10-20); BUN (Urea Nitrogen) 13 mg/dL (8.4-25.7); Calc. Creatinine Clearance 74 mL/min (70-130); Carbon Dioxide 22 mmol/L (23-31); Chloride 106 mmol/L (98-107); Estimated GFR-MDRD 70; Glucose 238 mg/dL (80-115); Magnesium 1.9 mg/dL (1.6-2.6); Phosphorus 2.3 mg/dL (2.3-4.7); Potassium 3.8 mmol/L (3.5-5.1); Sodium 138 mmol/L (136-145)
[2019-07-27 05:23] LABS: Band 4 % (5-11); Hemoglobin 8.4 g/dL (14.0-18.0); Lymphocytes 22 % (21-51); MDiff Complete? YES; Mean Corpuscular HGB CONC 34.9 g/dL (32.0-36.0); Mean Corpuscular Volume 91.9 fL (78.0-98.0); Monocytes 5 % (0-10); Neutrophil 69 % (42-75); Platelet Count 129 thou/uL (130-400); RBC Distribution Width 12.8 % (11.5-14.5); Red Blood Cell (RBC) Count 2.63 mill/uL (4.70-6.10); White Blood Cell (WBC) Count 5.8 thou/uL (4.8-10.8)
[2019-07-27] MEDS: Levothyroxine Sodium 125 MCG TAB PO SCH (05:35)
[2019-07-27] MEDS: Hydrocortisone Sod Succ/PF 100 mg/2 ml Vial IVP SCH ×2 (05:35→12:46)
[2019-07-27] MEDS: Acetaminophen 325 MG TAB PO SCH ×2 (05:35→12:42)
[2019-07-27 08:08] VITALS: TEMP 98.4
[2019-07-27] MEDS: Insulin Glargine 10 UNITS in Pre-Filled Syringe 1 EACH SC SCH (08:58)
[2019-07-27] MEDS: Tamsulosin HCl 0.4 MG CAP PO SCH (08:59)
[2019-07-27] MEDS: Cyclobenzaprine 10 MG TAB PO SCH (08:59)
[2019-07-27] MEDS: Ferrous Sulfate 325 MG TAB PO SCH (08:59)
[2019-07-27] MEDS: Gabapentin 300 MG CAP PO SCH (08:59)
[2019-07-27] MEDS: Ascorbic Acid 500 mg Chewable Tablet PO SCH (08:59)
[2019-07-27] MEDS ORDERED: POTASSIUM PHOSPHATE IVPB ONE (09:00)
[2019-07-27] MEDS: Polyethylene Glycol 3350 17 GM Packet PO SCH (09:00)
[2019-07-27] MEDS ORDERED: [UNRECOGNIZED DRUG - OTHER] IVPB ONE (09:00)
[2019-07-27] MEDS: Senokot S 8.6-50 MG TAB PO SCH (09:00)
[2019-07-27] MEDS ORDERED: MAGNESIUM SULFATE IVPB ONE (09:00)
[2019-07-27] MEDS: Dorzolamide HCl 2% Ophth Soln 10 ml Bottle EA EYE SCH (09:02)
[2019-07-27] MEDS: Brimonidine Tartrate 0.2% Ophth Soln 5 ml Bottle EA EYE SCH (09:09)
[2019-07-27] MEDS ORDERED: Ibuprofen 600 MG TAB PO PRN (09:38)
[2019-07-27] MEDS ORDERED: Ibuprofen 200 MG TAB PO PRN (09:56)
[2019-07-27] MEDS ORDERED: PHOS-NAK 1 PKT PACK PO SCH (10:30)
[2019-07-27] MEDS ORDERED: Magnesium Oxide 400 MG TAB PO SCH ×2 (11:00→21:00)
[2019-07-27 11:33] VITALS: BP 123/79
[2019-07-27] MEDS: Insulin Regular 300 UNITS/3 ML VIAL SC PRN (12:40)
--- NOTE | 2019-07-30 10:29 | DIS ---
DATE OF ADMISSION: 07/23/2019 DATE OF DISCHARGE: 07/27/2019 This is Urszula Birmingham NP dictating a report for Doug Mari DO. DISCHARGE ATTENDING: Dr. Mari. CONSULTS: Orthopedic Surgery, Dr. Orellana. PROCEDURES PERFORMED: On 07/23/2019, intramedullary nail stabilization of the right intertrochanteric femur fracture. PRIMARY DIAGNOSES: Ground level fall, right displaced subtrochanteric femur fracture. SECONDARY DIAGNOSES: History of type 1 diabetes, hypertension, hypothyroidism, recent C-spine compression fracture and pelvic fracture healing, left lower extremity amputation. DISCHARGE MEDICATIONS: 1. Acetaminophen 650 mg p.o. q.6 hours. 2. Tylenol No. 3 one tablet p.o. q.6 hours as needed for pain. 3. Vitamin C 500 mg p.o. b.i.d. 4. Alphagan eyedrops. 5. Flexeril 10 mg p.o. b.i.d. as needed. 6. Dorzolamide eyedrops b.i.d. 7. Vasotec 5 mg p.o. daily. 8. Ferrous sulfate 325 mg p.o. b.i.d. with meals. 9. Gabapentin 300 mg p.o. 3 times a day. 10. Ibuprofen as needed 400 mg. 11. NovoLog. 12. Lantus. 13. Eye drops 14. Magnesium oxide 400 mg p.o. b.i.d. for 3 days. 15. Zofran as needed 4 mg q.6 hours. 16. MiraLAX as needed. 17. Senokot as needed. 18. Flomax 0.4 mg p.o. daily. HISTORY OF PRESENT ILLNESS: A 59-year-old male presented to the ER with right thigh pain. The patient was attempting to go to his wheelchair when he tripped backwards and fell. The patient had no loss of consciousness and did not hit his head. The patient reported immediate pain, was unable to bear weight. The patient was admitted to Trauma Services. The patient's pain was well controlled during his hospital visit. The patient was able to work with Physical and Occupational Therapy. On the day of discharge, the patient was evaluated by Dr. Mari. The patient was deemed stable for discharge home. The patient's vital signs were stable and his exam was unremarkable including cardiopulmonary and GI exam. DISCHARGE INSTRUCTIONS: 1. Location: Inpatient rehab. 2. Diet: Diabetic diet. 3. Activity: Orthopedic limitations. Strict nonweightbearing in right lower extremity. Outpatient physical and occupational therapy. The patient is to use a walker. 4. Followup: Follow up with Dr. Orellana in 10 days. Job ID: [id number] MTDD
== END 2019-07-27 15:17 | DRG 481 ==
LOC: ERS 08:33 → SURG A 12:22
PROVIDERS: ADMIT Surgery; ATTEND Surgery
PROC: 0QS606Z Reposition Right Upper Femur with Intramedullary Internal Fixation Device, Open Approach (ICD-10-PCS; principal; 2019-07-23)
PROC: 30233N1 Transfusion of Nonautologous Red Blood Cells into Peripheral Vein, Percutaneous Approach (ICD-10-PCS; 2019-07-26)
DX: S72.21XA Displaced subtrochanteric fracture of right femur, initial encounter for closed fracture (principal); D62 Acute posthemorrhagic anemia; N17.9 Acute kidney failure, unspecified; R44.3 Hallucinations, unspecified; E27.40 Unspecified adrenocortical insufficiency; Z59.0 Homelessness; E10.9 Type 1 diabetes mellitus without complications; E03.9 Hypothyroidism, unspecified; W05.0XXA Fall from non-moving wheelchair, initial encounter; N28.9 Disorder of kidney and ureter, unspecified; Z89.612 Acquired absence of left leg above knee; R33.9 Retention of urine, unspecified
CPT/HCPCS: 36415; 36416; 36430; 71045; 76000; 80048; 80053; 82533; 83605; 83735; 84100; 84484; 85007; 85025; 85027; 85610; 85730; 86850; 86870; 86900; 86901; 86921; 93005; 96374; 96375; 96376; C1713; C1769; G0390; J1170; J1720; J1815; J2001; J2270; J2405; J2550; J2704; J3010; J7050; P9016; Q0162